=== PATIENT | male | born 1955 | race African-American/Black ===

== ENCOUNTER → 2016-12-08 | Outpatient (CLI) | payer OTHER ==
--- NOTE | 2016-12-08 15:16 | RADIOLOGY REPORT (SQ) ---
EXAM DESCRIPTION: HIP LEFT AP/LATERAL COMPLETED DATE/TIME: 12/08/2016 2:44 pm REASON FOR STUDY: PAIN IN LEFT HIP M46.1 SACROILIITIS, NOT ELSEWHERE CLASSIFIED M25.552 PAIN IN LE FT HIP COMPARISON: SI joint films same date CT abdomen pelvis 06/25/2012 NUMBER OF VIEWS: Two views. TECHNIQUE: AP pelvis and additional frog-leg view of the left hip. LIMITATIONS: None. FINDINGS: MINERALIZATION: Normal. LEFT HIP: No fracture or dislocation. No significant left hip joint space narrowing. Mild acetabula r rim bony spurring. No worrisome bone lesions. RIGHT HIP: No fracture or dislocation. No significant left hip joint space narrowing. Mild acetabul ar rim bony spurring. No worrisome bone lesions. PUBIS AND ISCHIUM: No fracture. PELVIS: No fracture. SACRUM: Right-sided SI joint sclerosis LOWER LUMBAR SPINE: No fracture or dislocation. No worrisome bone lesions. No significant disc disea se. SOFT TISSUES: No findings. OTHER: No other significant finding. IMPRESSION: No plain film findings to explain history of left hip pain. Right-sided SI joint bony s clerosis TECHNICAL DOCUMENTATION: JOB ID: [id number] [employer]- All Rights Reserved
--- NOTE | 2016-12-08 15:17 | RADIOLOGY REPORT (SQ) ---
EXAM DESCRIPTION: SACROILIAC JOINTS COMPLETED DATE/TIME: 12/08/2016 2:44 pm REASON FOR STUDY: SACROILIITIS, NOT ELSEWHERE CLASSIFIED M46.1 SACROILIITIS, NOT ELSEWHERE CLASSIFI ED M25.552 PAIN IN LEFT HIP COMPARISON: Left hip plain films same date CT abdomen pelvis 06/25/2012 NUMBER OF VIEWS: Three views. TECHNIQUE: AP and oblique views of the sacroiliac joints. LIMITATIONS: None. FINDINGS: MINERALIZATION: Normal. BONES: No acute fracture or dislocation. No worrisome bone lesions. No significant osteophytes. JOINTS: Sclerosis right SI joint. Left SI joint unremarkable. SOFT TISSUES: No soft tissue swelling. No radio-opaque foreign body. OTHER: No other significant finding. IMPRESSION: Sclerosis right SI joint. Left SI joint unremarkable. TECHNICAL DOCUMENTATION: JOB ID: [id number] [employer]- All Rights Reserved
== END ==
LOC: OD 14:15
PROVIDERS: ATTEND Internal Medicine
DX: M46.1 Sacroiliitis, not elsewhere classified (principal); M25.552 Pain in left hip; I10 Essential (primary) hypertension
CPT/HCPCS: 72200

== ENCOUNTER 2017-08-23 10:46 | Emergency (ER) | payer OTHER ==
[2017-08-23] MEDS ORDERED: NAPROXEN 250 MG TABLET PO ONE (10:59)
[2017-08-23] MEDS ORDERED: HYDROCODONE/ACETAMINOPHEN 5-325 MG TABLET PO ONE (10:59)
--- NOTE | 2017-08-23 10:59 | ER Document Report ---
ED Medical Screen (RME) - General Chief Complaint: Abdominal Pain Stated Complaint: LEFT ABDOMINAL PAIN Notes: The patient is a 62-year-old male who presents with 4 days of intermittent left lower quadrant and left inguinal abdominal pain. He was sent from the [place] [facility] for further evaluation and treatment. He is also having tea-colored urine. Denies nausea, vomiting, fevers, dysuria, diarrhea or constipation. PE: Tenderness over LLQ. Normal bowel sounds. I have greeted and performed a rapid initial assessment of this patient. A comprehensive ED assessment and evaluation of the patient, analysis of test results and completion of the medical decision making process will be conducted by additional ED providers. TRAVEL OUTSIDE OF THE [place] IN LAST 30 DAYS: No - Related Data Allergies/Adverse Reactions: latex [Latex] Allergy (Verified 12/20/12 11:33) rash Past Medical History - Past Medical History Cardiac Medical History: Reports: Hx Hypertension - MEDICATED Denies: Hx Heart Attack Pulmonary Medical History: Denies: Hx Asthma Neurological Medical History: Denies: Hx Cerebrovascular Accident, Hx Seizures GI Medical History: Denies: Hx Hepatitis, Hx Hiatal Hernia, Hx Ulcer Infectious Medical History: Denies: Hx Hepatitis Past Surgical History: Denies: Hx Open Heart Surgery, Hx Pacemaker Physical Exam - Vital signs Vitals: Temp Pulse Resp BP Pulse Ox 98.5 F 77 16 149/87 H 96 08/23/17 10:50 08/23/17 10:50 08/23/17 10:50 08/23/17 10:50 08/23/17 10:50 Course - Vital Signs Vital signs: Temp Pulse Resp BP Pulse Ox 98.5 F 77 16 149/87 H 96 08/23/17 10:50 08/23/17 10:50 08/23/17 10:50 08/23/17 10:50 08/23/17 10:50 Doctor's Discharge - Discharge Referrals: CHASITY DAVIS MD [Primary Care Provider] - Follow up as needed
[2017-08-23 11:43] LABS: APPEARANCE,URINE CLEAR; BILIRUBIN,URINE NEGATIVE (NEGATIVE); COLOR,URINE YELLOW; GLUCOSE, URINE NEGATIVE (NEGATIVE); KETONES,URINE NEGATIVE (NEGATIVE); LEUKOCYTE ESTERASE,URINE NEGATIVE (NEGATIVE); NITRITE,URINE NEGATIVE (NEGATIVE); PROTEIN,URINE NEGATIVE (NEGATIVE); URINE SPECIFIC GRAVITY 1.023; UROBILINOGEN,URINE NEGATIVE mg/dL (<2.0)
[2017-08-23 11:47] LABS: ABSOLUTE EOSINOPHILS # (AUTO) 0.1 10^3/uL (0.0-0.6); ABSOLUTE LYMPHOCYTES (AUTO) 1.5 10^3/uL (0.5-4.7); ABSOLUTE MONOCYTES (AUTO) 0.3 10^3/uL (0.1-1.4); ABSOLUTE NEUT (AUTO) 2.4 10^3/uL (1.7-8.2); BASOPHILS % (AUTO) 0.4 % (0-2); EOSINOPHILS % (AUTO) 1.9 % (0-6); HEMATOCRIT 45.3 % (37.9-51.0); HEMOGLOBIN 14.7 g/dL (13.5-17.0); LYMPHOCYTES % (AUTO) 34.2 % (13-45); MEAN CORPUSCULAR HEMOGLOBIN 22.9 pg (27.0-33.4); MEAN CORPUSCULAR HGB CONC 32.3 g/dL (32.0-36.0); MEAN CORPUSCULAR VOLUME 71 fl (80-97); MONOCYTES % (AUTO) 7.3 % (3-13); PLATELET COUNT 182 10^3/uL (150-450); RED BLOOD COUNT 6.41 10^6/uL (4.35-5.55); RED CELL DISTRIBUTION WIDTH 16.2 % (11.5-14.0); SEGMENTED NEUTROPHILS % (AUTO) 56.2 % (42-78); TOTAL CELLS COUNTED % (AUTO) 100 %; WHITE BLOOD COUNT 4.3 10^3/uL (4.0-10.5)
--- NOTE | 2017-08-23 11:54 | ER Document Report ---
ED General - General Chief Complaint: Abdominal Pain Stated Complaint: LEFT ABDOMINAL PAIN Time Seen by Provider: 08/23/17 10:59 Mode of Arrival: Ambulatory Information source: Patient Notes: This is a 62-year-old man with a history of hypertension, dyslipidemia, obstructive sleep apnea who presents to the emergency room with back pain radiating to the left flank for the past week. He did state that he had some tea colored urine a week ago but is urine has been clear since. He denies any history of kidney stones. He denies any nausea vomiting. He states he was evaluated at the [facility] and was treated with a Toradol shot which improved the pain. TRAVEL OUTSIDE OF THE [place] IN LAST 30 DAYS: No - HPI Onset: Other - Past 2 weeks Onset/Duration: Gradual Quality of pain: Dull Severity: Moderate Pain Level: 3 Associated symptoms: denies: Chills, Fever, Shortness of breath Exacerbated by: Movement, Other - During forward Relieved by: Remaining still Similar symptoms previously: Yes Recently seen / treated by doctor: Yes - Related Data Allergies/Adverse Reactions: latex [Latex] Allergy (Verified 08/23/17 11:00) rash Past Medical History - General Information source: Patient - Social History Smoking Status: Never Smoker Cigarette use (# per day): No Chew tobacco use (# tins/day): No Frequency of alcohol use: Rare Drug Abuse: None Lives with: Family Family History: None Patient has suicidal ideation: No Patient has homicidal ideation: No - Past Medical History Cardiac Medical History: Reports: Hx Hypercholesterolemia, Hx Hypertension - MEDICATED Denies: Hx Heart Attack Pulmonary Medical History: Denies: Hx Asthma Neurological Medical History: Denies: Hx Cerebrovascular Accident, Hx Seizures Renal/ Medical History: Denies: Hx Peritoneal Dialysis GI Medical History: Denies: Hx Hepatitis, Hx Hiatal Hernia, Hx Ulcer Infectious Medical History: Denies: Hx Hepatitis Past Surgical History: Reports: Hx Orthopedic Surgery - left knee. Denies: Hx Open Heart Surgery, Hx Pacemaker Review of Systems - Review of Systems Constitutional: denies: Chills, Fever EENT: No symptoms reported Cardiovascular: No symptoms reported Respiratory: No symptoms reported Gastrointestinal: See HPI Genitourinary: No symptoms reported Male Genitourinary: No symptoms reported Musculoskeletal: See HPI Skin: No symptoms reported Hematologic/Lymphatic: No symptoms reported Neurological/Psychological: No symptoms reported Physical Exam - Vital signs Vitals: Temp Pulse Resp BP Pulse Ox 98.5 F 77 16 149/87 H 96 08/23/17 10:50 08/23/17 10:50 08/23/17 10:50 08/23/17 10:50 08/23/17 10:50 Notes: Physical exam: GENERAL: 62-year-old man, alert and oriented 3, no acute distress HEAD: Atraumatic, normocephalic. EYES: Pupils equal round and reactive to light, extraocular movements intact, sclera anicteric, conjunctiva are normal. ENT: TMs normal, nares patent, oropharynx clear without exudates. Moist mucous membranes. NECK: Normal range of motion, supple without obvious mass or JVD. LUNGS: Breath sounds clear to auscultation bilaterally and equal. No wheezes rales or rhonchi. HEART: Regular rate and rhythm without murmurs, rubs or gallops. ABDOMEN: Soft, normoactive bowel sounds. No tenderness to palpation. No guarding, no rebound. No masses pulsatile or otherwise. EXTREMITIES: Normal range of motion, no pitting or edema. No clubbing or cyanosis. NEUROLOGICAL: Cranial nerves II through XII grossly intact. Normal speech, moving all extremities. PSYCH: Normal mood, normal affect. SKIN: Warm, Dry, normal turgor, no rashes or lesions noted. Course - Vital Signs Vital signs: Temp Pulse Resp BP Pulse Ox 97.4 F 69 16 121/87 H 97 08/23/17 13:53 08/23/17 13:53 08/23/17 13:53 08/23/17 13:53 08/23/17 13:53 - Laboratory Result Diagrams: 08/23/17 11:20 08/23/17 11:20 Laboratory results interpreted by me: 08/23/17 11:20 RBC 6.41 H MCV 71 L MCH 22.9 L RDW 16.2 H - Diagnostic Test Radiology reviewed: Image reviewed, Reports reviewed - CT of the abdomen shows a small left inguinal hernia without bowel compromise Discharge - Discharge Clinical Impression: Back pain Condition: Stable Disposition: HOME, SELF-CARE Additional Instructions: Your labs look good today. The urine analysis was normal. The CAT scan was relatively good. All your organs look good. There was an incidental finding and you have a small hernia in your groin on the left side. Hernias usually get worse with coughing, straining, heavy lifting. Your pain seems more positional which tends to be more of a back issue. I would like you to follow-up with your primary care doctor at the [facility]. I think you could probably benefit from a referral for physical therapy for your back and if the pain persist you might need an outpatient MRI. As far as the inguinal hernia, if you start getting pain with coughing, bowel movements, straining: I recommend following up with a surgeon as an outpatient. I will give you the number of Dr. Fournier who is 1 of the surgeons affiliated with the hospital. Otherwise continue current medicines and return to the emergency room for any concerns that she getting worse. Referrals: CHASITY DAVIS MD [Primary Care Provider] - Follow up as needed MONCHO NASH MD [ACTIVE STAFF] - Follow up as needed (This is the number of the general surgeon affiliated with the [facility])
[2017-08-23 12:02] LABS: ALANINE AMINOTRANSFERASE 41 U/L (21-72); ALBUMIN 4.4 g/dL (3.5-5.0); ALKALINE PHOSPHATASE 55 U/L (38-126); ANION GAP 11 (5-19); ASPARTATE AMINO TRANSFERASE 39 U/L (17-59); BILIRUBIN,DIRECT 0.3 mg/dL (0.0-0.4); BILIRUBIN,TOTAL 0.8 mg/dL (0.2-1.3); BLOOD UREA NITROGEN 18 mg/dL (7-20); CALCIUM 9.6 mg/dL (8.4-10.2); CARBON DIOXIDE 26 mmol/L (22-30); CHLORIDE 107 mmol/L (98-107); GLUCOSE 89 mg/dL (75-110); LIPASE 101.6 U/L (23-300); POTASSIUM 4.1 mmol/L (3.6-5.0); SODIUM 143.9 mmol/L (137-145)
--- NOTE | 2017-08-23 12:54 | RADIOLOGY REPORT (SQ) ---
EXAM DESCRIPTION: CT ABD/PELVIS WITH IV ONLY COMPLETED DATE/TIME: 08/23/2017 12:28 pm REASON FOR STUDY: LLQ abdominal pain COMPARISON: Renal stones CT abdomen and pelvis 06/25/2012 TECHNIQUE: CT scan of the abdomen and pelvis performed using helical scanning technique with dynamic intravenous contrast injection. No oral contrast. Images reviewed with lung, soft tissue, and bone windows. Reconstructed coronal and sagittal MPR images reviewed. Delayed images for evaluation of the urinary system also acquired. All images stored on PACS. All CT scanners at this facility use dose modulation, iterative reconstruction, and/or weight based d osing when appropriate to reduce radiation dose to as low as reasonably achievable (ALARA). [facility]: Dose Right [facility]: CareDose [facility]: Dose Right [facility]: Teradose 4D [facility]: [employer] CONTRAST TYPE AND DOSE: contrast/concentration: Isovue 370.00 mg/ml; Total Contrast Delivered: 100.0 ml; Total Saline Delivered: 72.0 ml 100 mL Isovue 370 intravenously RENAL FUNCTION: Creatinine 0.85. RADIATION DOSE: CT Rad equipment meets quality standard of care and radiation dose reduction techniq ues were employed. CTDIvol: 20.9 - 21.1 mGy. DLP: 2542 mGy-cm.. LIMITATIONS: None. FINDINGS: LOWER CHEST: No significant findings. No nodules or infiltrates. LIVER: Multiple cysts are again seen of the liver, the largest 4.1 cm. SPLEEN: Normal size. No focal lesions. PANCREAS: No masses. No significant calcifications. No adjacent inflammation or peripancreatic fluid collections. Pancreatic duct not dilated. GALLBLADDER: No identified stones by CT criteria. No inflammatory changes to suggest cholecystitis. ADRENAL GLANDS: No significant masses or asymmetry. RIGHT KIDNEY AND URETER: No solid masses. No significant calcifications. No hydronephrosis or hyd roureter. LEFT KIDNEY AND URETER: No solid masses. No significant calcifications. No hydronephrosis or hydr oureter. AORTA AND VESSELS: No AAA. RETROPERITONEUM: No retroperitoneal adenopathy, hemorrhage or masses. BOWEL AND PERITONEAL CAVITY: No masses or inflammatory changes. No free fluid or peritoneal masses. APPENDIX: Normal. PELVIS: No mass. No free fluid. Normal bladder. ABDOMINAL WALL: Left inguinal hernia contains peritoneal fat. BONES: No significant or acute findings. OTHER: No other significant finding. IMPRESSION: Nothing acute. Small left inguinal hernia contains peritoneal fat. TECHNICAL DOCUMENTATION: JOB ID: [id number] Quality ID # [id number]: Final reports with documentation of one or more dose reduction techniques (e.g., Au tomated exposure control, adjustment of the mA and/or kV according to patient size, use of iterative reconstruction technique) 2010 [employer]- All Rights Reserved Reading location - IP/workstation name: [email or web address]
[2017-08-23 13:54] VITALS: BP 121/87
== END 2017-08-23 13:53 | disposition home or self-care (01) ==
LOC: ER 10:46
DX: M54.9 Dorsalgia, unspecified (principal); K40.90 Unilateral inguinal hernia, without obstruction or gangrene, not specified as recurrent; R10.9 Unspecified abdominal pain; I10 Essential (primary) hypertension; Z91.040 Latex allergy status
CPT/HCPCS: 36415; 74177; 80053; 81001; 83690; 85025; 99284

== ENCOUNTER → 2018-09-04 | Outpatient (CLI) | payer OTHER ==
--- NOTE | 2018-09-04 11:01 | RADIOLOGY REPORT (SQ) ---
EXAM DESCRIPTION: U/S ABDOMEN LIMITED W/O DOP COMPLETED DATE/TIME: 09/04/2018 10:11 am REASON FOR STUDY: (R10.9)UNSPECIFIED ABDOMINAL PAIN R10.9 UNSPECIFIED ABDOMINAL PAIN R11.0 NAUSEA COMPARISON: CT abdomen pelvis 08/23/2017, 06/25/2012 Abdominal ultrasound 10/20/2015 TECHNIQUE: Dynamic and static grayscale images acquired of the abdomen and recorded on PACS. Additio nal selected color Doppler and spectral images recorded. LIMITATIONS: None. FINDINGS: PANCREAS: Midline pancreas unremarkable LIVER: There are multiple benign cysts scattered throughout the liver, correlating with the CT exam f rom 08/23/2017. The largest of these is about 4 cm in diameter in the left lobe liver. LIVER VASCULATURE: Normal directional flow of the main portal vein and hepatic veins. GALLBLADDER: No stones. Normal wall thickness. No pericholecystic fluid. ULTRASOUND-DETECTED MONROE'S SIGN: Negative. INTRAHEPATIC DUCTS AND COMMON DUCT: CBD and intrahepatic ducts normal caliber. No filling defects. D istal most common duct not well seen due to duodenum gas INFERIOR VENA CAVA: Normal flow. AORTA: No aneurysm. RIGHT KIDNEY: Normal size. Normal echogenicity. No solid or suspicious masses. No hydronephrosis. No calcifications. PERITONEAL AND RIGHT PLEURAL SPACE: No ascites or effusions. OTHER: No other significant findings. IMPRESSION: NORMAL RIGHT UPPER QUADRANT ULTRASOUND. Multiple benign hepatic cysts are present. TECHNICAL DOCUMENTATION: JOB ID: [id number] [employer]- All Rights Reserved Reading location - IP/workstation name: [email or web address]
== END ==
LOC: RAD 09:06
PROVIDERS: ATTEND Internal Medicine Gastroenterology
DX: K76.89 Other specified diseases of liver (principal); R10.9 Unspecified abdominal pain; R11.0 Nausea
CPT/HCPCS: 76705

== ENCOUNTER 2019-03-18 18:20 | Inpatient (IN) | payer OTHER ==
--- NOTE | 2019-03-18 20:01 | ER Document Report ---
ED Medical Screen (RME) - General Chief Complaint: Leg Pain Stated Complaint: POSSIBLE BLOOD CLOT Time Seen by Provider: 03/18/19 19:54 Primary Care Provider: CHASITY DAVIS MD [Primary Care Provider] - Follow up as needed TRAVEL OUTSIDE OF THE [place] IN LAST 30 DAYS: No - HPI Notes: 03/18/19 20:00 Patient is a 63-year-old male who presents from outpatient Doppler ultrasound for a blood clot to the posterior tibial veins from the knee down of his right leg. He is not having any chest pain or shortness of breath. Denies any prolonged immobilization, distance travel, recent surgery/trauma, personal cancer history, hormone use, or previous DVT/PE. Reviewed with Dr. Bray- we will check labs prior to starting anticoagulants I have treated and performed a rapid initial assessment of this patient. A comprehensive ED assessment and evaluation of the patient, analysis of test results and completion of medical decision making process will be conducted by additional ED providers. PHYSICAL EXAMINATION: GENERAL: Well-appearing, well-nourished and in no acute distress. A&Ox4. Answers questions appropriately. Heart: RRR Lungs: CTAB Extremities: Right leg is larger than left leg with 1+ pitting edema to the right and trace to the left. - Related Data Allergies/Adverse Reactions: latex [Latex] Allergy (Verified 03/18/19 19:46) rash Past Medical History - Past Medical History Cardiac Medical History: Reports: Hx Hypercholesterolemia, Hx Hypertension - MEDICATED Denies: Hx Heart Attack Pulmonary Medical History: Denies: Hx Asthma Neurological Medical History: Denies: Hx Cerebrovascular Accident, Hx Seizures Renal/ Medical History: Denies: Hx Peritoneal Dialysis GI Medical History: Denies: Hx Hepatitis, Hx Hiatal Hernia, Hx Ulcer Infectious Medical History: Denies: Hx Hepatitis Past Surgical History: Reports: Hx Orthopedic Surgery - left knee. Denies: Hx Open Heart Surgery, Hx Pacemaker Physical Exam - Vital signs Vitals: Temp Pulse Resp BP Pulse Ox 98.4 F 71 20 148/87 H 98 03/18/19 19:37 03/18/19 19:37 03/18/19 19:37 03/18/19 19:37 03/18/19 19:37 Course - Vital Signs Vital signs: Temp Pulse Resp BP Pulse Ox 98.4 F 71 20 148/87 H 98 03/18/19 19:37 03/18/19 19:37 03/18/19 19:37 03/18/19 19:37 03/18/19 19:37 Doctor's Discharge - Discharge Referrals: CHASITY DAVIS MD [Primary Care Provider] - Follow up as needed
[2019-03-18 20:26] LABS: ABSOLUTE EOSINOPHILS # (AUTO) 0.2 10^3/uL (0.0-0.6); ABSOLUTE LYMPHOCYTES (AUTO) 2.2 10^3/uL (0.5-4.7); ABSOLUTE MONOCYTES (AUTO) 0.5 10^3/uL (0.1-1.4); ABSOLUTE NEUT (AUTO) 3.8 10^3/uL (1.7-8.2); BASOPHILS % (AUTO) 0.4 % (0-2); EOSINOPHILS % (AUTO) 3.1 % (0-6); HEMOGLOBIN 14.2 g/dL (13.5-17.0); LYMPHOCYTES % (AUTO) 32.2 % (13-45); MEAN CORPUSCULAR HEMOGLOBIN 22.5 pg (27.0-33.4); MEAN CORPUSCULAR HGB CONC 31.7 g/dL (32.0-36.0); MEAN CORPUSCULAR VOLUME 71 fl (80-97); MONOCYTES % (AUTO) 7.9 % (3-13); PLATELET COUNT 175 10^3/uL (150-450); RED BLOOD COUNT 6.33 10^6/uL (4.35-5.55); RED CELL DISTRIBUTION WIDTH 15.9 % (11.5-14.0); SEGMENTED NEUTROPHILS % (AUTO) 56.4 % (42-78); TOTAL CELLS COUNTED % (AUTO) 100 %; WHITE BLOOD COUNT 6.7 10^3/uL (4.0-10.5)
[2019-03-18 20:33] LABS: INTERNATIONAL RATION (INR) 0.97; PROTHROMBIN TIME 12.9 SEC (11.4-15.4)
[2019-03-18 20:34] LABS: PARTIAL THROMBOPLASTIN TIME 30.9 SEC (23.5-35.8)
[2019-03-18 20:52] LABS: ALBUMIN 4.3 g/dL (3.5-5.0); ALKALINE PHOSPHATASE 66 U/L (38-126); ANION GAP 9 (5-19); ASPARTATE AMINO TRANSFERASE 48 U/L (17-59); BILIRUBIN,DIRECT 0.2 mg/dL (0.0-0.4); BILIRUBIN,TOTAL 0.6 mg/dL (0.2-1.3); BLOOD UREA NITROGEN 17 mg/dL (7-20); CALCIUM 10.2 mg/dL (8.4-10.2); CARBON DIOXIDE 29 mmol/L (22-30); CHLORIDE 102 mmol/L (98-107); GLUCOSE 88 mg/dL (75-110); TOTAL PROTEIN 7.4 g/dL (6.3-8.2)
--- NOTE | 2019-03-18 21:54 | ER Document Report ---
ED Extremity Problem, Lower - General Chief Complaint: Leg Pain Stated Complaint: POSSIBLE BLOOD CLOT Time Seen by Provider: 03/18/19 19:54 Mode of Arrival: Ambulatory Information source: Patient Notes: 63-year-old male presented to ED for complaint of a deep vein thrombosis from the posterior tibial to the mid calf area. He was sent for the venous Doppler by Dr. Paula after the Doppler came back positive they sent him to the emergency room. He was seen in pit where labs were drawn. He was sent back to a room. I have spoken with Dr. Paula concerning the results of the venous Doppler and he stated he would like the patient admitted and started on a heparin drip. He states he would like him admitted to telemetry. Admission has been started. Heparin drip has been started per protocol. Patient has been ordered a diet for tonight. Patient is alert oriented respirations regular nonlabored speaking in full sentences he states that he does have pain to the back of the left leg. TRAVEL OUTSIDE OF THE [place] IN LAST 30 DAYS: No - HPI Patient complains to provider of: Pain, Swelling Location: Leg - Right Occurred: Other - Several days Where: Home Onset/Duration: Gradual Quality of pain: Burning Severity: Severe Recent injury: No Associated symptoms: Painful ambulation Exacerbated by: Nothing Relieved by: Nothing - Related Data Allergies/Adverse Reactions: latex [Latex] Allergy (Verified 03/18/19 19:46) rash Past Medical History - General Information source: Patient - Social History Smoking Status: Former Smoker Frequency of alcohol use: Rare Drug Abuse: None Occupation: Retired Lives with: Family Family History: None Patient has suicidal ideation: No Patient has homicidal ideation: No - Past Medical History Cardiac Medical History: Reports: Hx Hypercholesterolemia, Hx Hypertension - MEDICATED, Hx Peripheral Vascular Disease Pulmonary Medical History: Reports: Hx Sleep Apnea EENT Medical History: Reports: None Neurological Medical History: Reports: None Endocrine Medical History: Reports: None Renal/ Medical History: Reports: None Malignancy Medical History: Reports None GI Medical History: Reports: None Musculoskeletal Medical History: Reports Hx Arthritis, 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, Reports Hx Musculoskeletal Trauma Skin Medical History: Reports None Psychiatric Medical History: Reports: None Traumatic Medical History: Reports: None Infectious Medical History: Reports: None Past Surgical History: Reports: Hx Orthopedic Surgery - left knee partial knee replacement 2014 - Immunizations Immunizations up to date: Yes Review of Systems - Review of Systems Constitutional: No symptoms reported EENT: No symptoms reported Cardiovascular: No symptoms reported Respiratory: No symptoms reported Gastrointestinal: No symptoms reported Genitourinary: No symptoms reported Male Genitourinary: No symptoms reported Musculoskeletal: Other - Pain swelling to right knee to ankle. Positive venous Doppler for DVT Hematologic/Lymphatic: Blood clots - Left posterior tibial Neurological/Psychological: No symptoms reported -: Yes All other systems reviewed and negative Physical Exam - Vital signs Vitals: Temp Pulse Resp BP Pulse Ox 98.4 F 71 20 148/87 H 98 03/18/19 19:37 03/18/19 19:37 03/18/19 19:37 03/18/19 19:37 03/18/19 19:37 Interpretation: Normal - General General appearance: Appears well, Alert - HEENT Head: Normocephalic, Atraumatic Eyes: Normal Pupils: PERRL - Respiratory Respiratory status: No respiratory distress Chest status: Nontender Breath sounds: Normal Chest palpation: Normal - Cardiovascular Rhythm: Regular Heart sounds: Normal auscultation Murmur: No - Abdominal Inspection: Normal Distension: No distension Bowel sounds: Normal Tenderness: Nontender Organomegaly: No organomegaly - Back Back: Normal, Nontender - Extremities General upper extremity: Normal inspection, Nontender, Normal color, Normal ROM, Normal temperature General lower extremity: Normal color, Normal ROM, Normal temperature, Normal weight bearing. No: Dick's sign Knee: Tender, Pain with ROM, Patellar tendon intact, Popliteal fossa tender Calf: Tender Ankle: Tender - Neurological Neuro grossly intact: Yes Cognition: Normal Orientation: AAOx4 Notus Coma Scale Eye Opening: Spontaneous Domi Coma Scale Verbal: Oriented Notus Coma Scale Motor: Obeys Commands Domi Coma Scale Total: 15 Speech: Normal Motor strength normal: LUE, RUE, LLE, RLE Sensory: Normal - Psychological Associated symptoms: Normal affect, Normal mood - Skin Skin Temperature: Warm Skin Moisture: Dry Skin Color: Normal Course - Re-evaluation Re-evalutation: 03/18/19 22:[address] Paula concerning the posterior tibial to mid calf DVT. He states he would like the patient admitted to telemetry for DVT. He states he would like an upper heparin drip started. Orders were placed. Patient was given food for supper and he will be admitted to telemetry per Dr. Paula's request. - Vital Signs Vital signs: Temp Pulse Resp BP Pulse Ox 98.3 F 68 16 122/75 98 03/19/19 03:55 03/19/19 07:00 03/19/19 03:55 03/19/19 03:55 03/19/19 03:55 - Laboratory Result Diagrams: 03/19/19 05:25 03/19/19 05:25 Laboratory results interpreted by me: 03/18/19 03/18/19 03/18/19 20:09 20:09 20:09 RBC 6.33 H MCV 71 L MCH 22.5 L MCHC 31.7 L RDW 15.9 H Magnesium 2.6 H Creatine Kinase 552 H - Diagnostic Test Radiology reviewed: Image reviewed, Reports reviewed - Consults Dr. Paula Time consulted: 22:00 Reason for consultation: 03/18/19 22:16 Vein thrombosis right knee to calf Consulted provider: will see as inpatient Discharge - Discharge Clinical Impression: Deep vein thrombophlebitis of right leg Disposition: ADMITTED INPATIENT Admitting Provider: Nisa Unit Admitted: Telemetry
[2019-03-18] MEDS ORDERED: HEPARIN SODIUM,PORCINE/D5W 25,000 UNIT/250 ML RTUINJ IV PRN (22:07)
[2019-03-18] MEDS ORDERED: HEPARIN SOD (PORCINE) 1,000 UNIT/ML 10 ML VIAL IV ONE (22:07)
[2019-03-18 23:26] LABS: PHOSPHORUS 4.1 mg/dL (2.5-4.5)
[2019-03-18 23:26] LABS: ABSOLUTE EOSINOPHILS # (AUTO) 0.2 10^3/uL (0.0-0.6); ABSOLUTE MONOCYTES (AUTO) 0.5 10^3/uL (0.1-1.4); ABSOLUTE NEUT (AUTO) 3.9 10^3/uL (1.7-8.2); BASOPHILS % (AUTO) 0.3 % (0-2); EOSINOPHILS % (AUTO) 3.1 % (0-6); HEMATOCRIT 44.8 % (37.9-51.0); LYMPHOCYTES % (AUTO) 30.7 % (13-45); MEAN CORPUSCULAR HEMOGLOBIN 22.4 pg (27.0-33.4); MEAN CORPUSCULAR HGB CONC 31.3 g/dL (32.0-36.0); MEAN CORPUSCULAR VOLUME 72 fl (80-97); PLATELET COUNT 163 10^3/uL (150-450); RED BLOOD COUNT 6.26 10^6/uL (4.35-5.55); RED CELL DISTRIBUTION WIDTH 15.8 % (11.5-14.0); SEGMENTED NEUTROPHILS % (AUTO) 58.9 % (42-78); TOTAL CELLS COUNTED % (AUTO) 100 %; WHITE BLOOD COUNT 6.6 10^3/uL (4.0-10.5)
[2019-03-18 23:34] LABS: INTERNATIONAL RATION (INR) 1.15; PROTHROMBIN TIME 14.8 SEC (11.4-15.4)
[2019-03-18 23:49] LABS: CREATINE KINASE MB 3.81 ng/mL (<4.55)
[2019-03-19 00:01] LABS: TROPONIN I < 0.012 ng/mL
[2019-03-19 00:08] LABS: PARTIAL THROMBOPLASTIN TIME > 235.0 SEC (23.5-35.8)
[2019-03-19 00:11] LABS: FREE T4 (FREE THYROXINE) 0.84 ng/dL (0.78-2.19)
[2019-03-19 00:12] LABS: THYROID STIMULATING HORMONE 2.52 uIU/mL (0.47-4.68)
[2019-03-19 01:36] LABS: APPEARANCE,URINE SLIGHTLY-CLOUDY; BILIRUBIN,URINE NEGATIVE (NEGATIVE); COLOR,URINE YELLOW; GLUCOSE, URINE NEGATIVE (NEGATIVE); KETONES,URINE NEGATIVE (NEGATIVE); LEUKOCYTE ESTERASE,URINE NEGATIVE (NEGATIVE); NITRITE,URINE NEGATIVE (NEGATIVE); PROTEIN,URINE NEGATIVE (NEGATIVE); URINE SPECIFIC GRAVITY 1.024; UROBILINOGEN,URINE NEGATIVE mg/dL (<2.0)
[2019-03-19 01:56] LABS: URINE AMPHETAMINES SCREEN NEGATIVE; URINE BARBITURATES SCREEN NEGATIVE; URINE BENZODIAZEPINES SCREEN NEGATIVE; URINE COCAINE SCREEN NEGATIVE; URINE MARIJUANA (THC) SCREEN NEGATIVE; URINE METHADONE SCREEN NEGATIVE; URINE PHENCYCLIDINE SCREEN NEGATIVE
[2019-03-19 06:06] LABS: ABSOLUTE EOSINOPHILS # (AUTO) 0.2 10^3/uL (0.0-0.6); ABSOLUTE LYMPHOCYTES (AUTO) 1.8 10^3/uL (0.5-4.7); ABSOLUTE MONOCYTES (AUTO) 0.5 10^3/uL (0.1-1.4); ABSOLUTE NEUT (AUTO) 2.8 10^3/uL (1.7-8.2); BASOPHILS % (AUTO) 0.6 % (0-2); EOSINOPHILS % (AUTO) 4.3 % (0-6); HEMATOCRIT 40.1 % (37.9-51.0); LYMPHOCYTES % (AUTO) 33.7 % (13-45); MEAN CORPUSCULAR HEMOGLOBIN 22.8 pg (27.0-33.4); MEAN CORPUSCULAR HGB CONC 32.3 g/dL (32.0-36.0); MEAN CORPUSCULAR VOLUME 71 fl (80-97); MONOCYTES % (AUTO) 10.1 % (3-13); PLATELET COUNT 154 10^3/uL (150-450); RED BLOOD COUNT 5.69 10^6/uL (4.35-5.55); RED CELL DISTRIBUTION WIDTH 15.7 % (11.5-14.0); SEGMENTED NEUTROPHILS % (AUTO) 51.3 % (42-78); TOTAL CELLS COUNTED % (AUTO) 100 %; WHITE BLOOD COUNT 5.4 10^3/uL (4.0-10.5)
[2019-03-19 06:35] LABS: CREATINE KINASE MB 2.54 ng/mL (<4.55)
[2019-03-19 06:40] LABS: TROPONIN I < 0.012 ng/mL
[2019-03-19 06:48] LABS: ALBUMIN 3.5 g/dL (3.5-5.0); ALKALINE PHOSPHATASE 69 U/L (38-126); ANION GAP 9 (5-19); ASPARTATE AMINO TRANSFERASE 38 U/L (17-59); BILIRUBIN,DIRECT 0.3 mg/dL (0.0-0.4); BILIRUBIN,TOTAL 0.5 mg/dL (0.2-1.3); BLOOD UREA NITROGEN 16 mg/dL (7-20); CALCIUM 9.4 mg/dL (8.4-10.2); CARBON DIOXIDE 23 mmol/L (22-30); CHLORIDE 109 mmol/L (98-107); CHOLESTEROL 158.32 mg/dL (0-200); CREATINE KINASE 403 U/L (55-170); GLUCOSE 153 mg/dL (75-110); POTASSIUM 3.4 mmol/L (3.6-5.0); TOTAL PROTEIN 6.3 g/dL (6.3-8.2); TRIGLYCERIDES 159 mg/dL (<150)
[2019-03-19 06:59] LABS: DIRECT LDL 92 mg/dL (<100)
[2019-03-19 07:00] LABS: VLDL CHOLESTEROL 31.8 mg/dL (10-31)
[2019-03-19 12:07] LABS: TROPONIN I < 0.012 ng/mL
[2019-03-19] MEDS ORDERED: (PENDING PHARMACY ID) (Losartan/Hydrochlorothiazide [Losartan-Hctz 100-25 Mg Tab] 1 EACH) PO SCH (18:15)
[2019-03-19] MEDS ORDERED: FOLIC ACID PO SCH (18:15)
[2019-03-19] MEDS ORDERED: [UNRECOGNIZED DRUG - OTHER] PO SCH (18:15)
[2019-03-19] MEDS ORDERED: MV MN PO SCH (18:15)
[2019-03-19] MEDS ORDERED: LUTEIN PO SCH (18:15)
[2019-03-19 18:39] VITALS: BP 122/75
--- NOTE | 2019-03-19 20:10 | PDOC H&P ---
History of Present Illness Admission Date/PCP: 03/18/19 22:47 CHASITY DAVIS MD History of Present Illness: NICKI WHITNEY is a 63 year old male, He came to the office for evaluation of swelling of the right lower extremity, I suspected deep vein thrombosis, I requested for a venous ultrasound of the right lower extremities, the ultrasound demonstrated deep vein thrombosis affecting the posterior tibial vein from the knee to the mid calf. Patient was then subsequently referred from the ultrasound laboratory to the emergency room and subsequently he was admitted to the hospital. He has no chest pain ,he has no shortness of breath there is no known provocative factor That could be the etiology of the Deep vein thrombosis Past Medical History Cardiac Medical History: Reports: Hyperlipidema, Hypertension - MEDICATED, Peripheral Vascular Disease Pulmonary Medical History: Reports: Sleep Apnea EENT Medical History: Reports: None Neurological Medical History: Reports: None Endocrine Medical History: Reports: None Renal/ Medical History: Reports: None Malignancy Medical History: Reports: None GI Medical History: Reports: None Musculoskeltal Medical History: Reports: Arthritis Skin Medical History: Reports: None Psychiatric Medical History: Reports: None Traumatic Medical History: Reports: None Infectious Medical History: Reports: None Past Surgical History Past Surgical History: Reports: Orthopedic Surgery - left knee partial knee replacement 2014 Social History Lives with: Family Smoking Status: Former Smoker Electronic Cigarette use?: No Last Time Smoked: 1986 Frequency of Alcohol Use: Occasional Hx Recreational Drug Use: No Drugs: None Hx Prescription Drug Abuse: No Family History Family History: None Parental Family History Reviewed: Yes Children Family History Reviewed: Yes Sibling(s) Family History Reviewed.: Yes Medication/Allergy Home Medications: Apixaban [Eliquis 5 mg Tablet] 10 mg PO BID #14 tablet 03/19/19 Atorvastatin Calcium [Lipitor 20 mg Tablet] 20 mg PO QHS 03/19/19 Losartan/Hydrochlorothiazide [Losartan-Hctz 100-25 mg Tab] 1 each PO DAILY 03/19/19 Mv-Mn/Folic Acid/Lutein/Clb595 [Omid Multi For Men Tablet] 1 each PO DAILY 03/19/19 Allergies/Adverse Reactions: latex [Latex] Allergy (Verified 03/18/19 19:46) rash Review of Systems Constitutional: ABSENT: chills, fever(s), headache(s), weight gain, weight loss Eyes: ABSENT: visual disturbances Ears: ABSENT: hearing changes Cardiovascular: ABSENT: chest pain, dyspnea on exertion, edema, orthropnea, palpitations Respiratory: ABSENT: cough, hemoptysis Gastrointestinal: ABSENT: abdominal pain, constipation, diarrhea, hematemesis, hematochezia, nausea, vomiting Genitourinary: ABSENT: dysuria, hematuria Musculoskeletal: ABSENT: joint swelling Integumentary: ABSENT: rash, wounds Neurological: ABSENT: abnormal gait, abnormal speech, confusion, dizziness, focal weakness, syncope Psychiatric: ABSENT: anxiety, depression, homidical ideation, suicidal ideation Endocrine: ABSENT: cold intolerance, heat intolerance, menstrual abnormalities, polydipsia, polyuria Hematologic/Lymphatic: ABSENT: easy bleeding, easy bruising, lymphadenopathy Physical Exam Vital Signs: Temp Pulse Resp BP Pulse Ox 97.2 F 66 17 122/75 96 03/19/19 18:36 03/19/19 18:36 03/19/19 18:36 03/19/19 18:36 03/19/19 18:36 Intake & Output 03/18/19 03/19/19 03/20/19 06:59 06:59 06:59 Intake Total 112 1080 Output Total 400 Balance 112 680 Weight 140.6 kg General appearance: PRESENT: no acute distress, well-developed, well-nourished Head exam: PRESENT: atraumatic, normocephalic Eye exam: PRESENT: conjunctiva pink, EOMI, PERRLA Ear exam: PRESENT: normal external ear exam Mouth exam: PRESENT: moist, tongue midline Neck exam: PRESENT: full ROM Respiratory exam: PRESENT: clear to auscultation tiffany Cardiovascular exam: PRESENT: RRR, +S1, +S2 Pulses: PRESENT: normal dorsalis pedis pul, +2 pedal pulses bilateral Vascular exam: PRESENT: normal capillary refill GI/Abdominal exam: PRESENT: normal bowel sounds, soft Rectal exam: PRESENT: deferred Extremities exam: PRESENT: other - Right leg swelling Neurological exam: PRESENT: alert, awake, oriented to person, oriented to place, oriented to time, oriented to situation, CN II-XII grossly intact Psychiatric exam: PRESENT: appropriate affect, normal mood Skin exam: PRESENT: dry, intact, warm Results Laboratory Results: 03/19/19 05:25 03/19/19 05:25 01/13/20 01/13/20 01/13/20 20:09 20:09 20:09 WBC 6.7 RBC 6.33 H Hgb 14.2 Hct 45.0 MCV 71 L MCH 22.5 L MCHC 31.7 L RDW 15.9 H Plt Count 175 Seg Neutrophils % 56.4 Sodium 139.9 Potassium 4.0 Chloride 102 Carbon Dioxide 29 Anion Gap 9 BUN 17 Creatinine 0.92 Est GFR ( Amer) > 60 Glucose 88 Calcium 10.2 Phosphorus 4.1 Magnesium 2.6 H Total Bilirubin 0.6 AST 48 Alkaline Phosphatase 66 Ammonia Total Protein 7.4 Albumin 4.3 Triglycerides Cholesterol LDL Cholesterol Direct VLDL Cholesterol HDL Cholesterol Amylase 86 Lipase 79.0 TSH Free T4 Urine Color Urine Appearance Urine pH Ur Specific [place] Urine Protein Urine Glucose (UA) Urine Ketones Urine Blood Urine Nitrite Ur Leukocyte Esterase Urine WBC (Auto) Urine RBC (Auto) 03/18/19 03/18/19 03/18/19 20:09 23:15 23:15 WBC 6.6 RBC 6.26 H Hgb 14.0 Hct 44.8 MCV 72 L MCH 22.4 L MCHC 31.3 L RDW 15.8 H Plt Count 163 Seg Neutrophils % 58.9 Sodium Potassium Chloride Carbon Dioxide Anion Gap BUN Creatinine Est GFR ( Amer) Glucose Calcium Phosphorus Magnesium Total Bilirubin AST Alkaline Phosphatase Ammonia < 8.7 L Total Protein Albumin Triglycerides Cholesterol LDL Cholesterol Direct VLDL Cholesterol HDL Cholesterol Amylase Lipase TSH 2.52 Free T4 0.84 Urine Color Urine Appearance Urine pH Ur Specific [place] Urine Protein Urine Glucose (UA) Urine Ketones Urine Blood Urine Nitrite Ur Leukocyte Esterase Urine WBC (Auto) Urine RBC (Auto) 03/19/19 03/19/19 03/19/19 01:15 05:25 05:25 WBC 5.4 RBC 5.69 H Hgb 13.0 L Hct 40.1 MCV 71 L MCH 22.8 L MCHC 32.3 RDW 15.7 H Plt Count 154 Seg Neutrophils % 51.3 Sodium 140.6 Potassium 3.4 L Chloride 109 H Carbon Dioxide 23 Anion Gap 9 BUN 16 Creatinine 0.80 Est GFR ( Amer) > 60 Glucose 153 H Calcium 9.4 Phosphorus Magnesium Total Bilirubin 0.5 AST 38 Alkaline Phosphatase 69 Ammonia Total Protein 6.3 Albumin 3.5 Triglycerides 159 H Cholesterol 158.32 LDL Cholesterol Direct 92 VLDL Cholesterol 31.8 H HDL Cholesterol 47 Amylase Lipase TSH Free T4 Urine Color YELLOW Urine Appearance SLIGHTLY-CLOUDY Urine pH 5.0 Ur Specific [place] 1.024 Urine Protein NEGATIVE Urine Glucose (UA) NEGATIVE Urine Ketones NEGATIVE Urine Blood NEGATIVE Urine Nitrite NEGATIVE Ur Leukocyte Esterase NEGATIVE Urine WBC (Auto) 0 Urine RBC (Auto) 0 03/18/19 03/18/19 03/18/19 20:09 20:09 20:09 Creatine Kinase 552 H CK-MB (CK-2) 3.81 Troponin I < 0.012 NT-Pro-B Natriuret Pep 03/19/19 03/19/19 03/19/19 05:25 05:25 10:49 Creatine Kinase 403 H 359 H CK-MB (CK-2) 2.54 Troponin I < 0.012 NT-Pro-B Natriuret Pep 03/19/19 10:49 Creatine Kinase CK-MB (CK-2) 2.30 Troponin I < 0.012 NT-Pro-B Natriuret Pep Assessment & Plan - Diagnosis (1) Acute embolism and thrombosis of deep vein of right lower extremity Is this a current diagnosis for this admission?: Yes Plan: He has unprovoked deep vein thrombosis of the right leg, patient is admitted into the hospital for management
--- NOTE | 2019-03-19 20:17 | PDOC DISCHARGE SUMMARY ---
Impression - Admit/DC Date/PCP Admission Date/Primary Care Provider: 03/18/19 22:47 CHASITY DAVIS MD Discharge Date: 03/19/19 - Discharge Diagnosis (1) Acute embolism and thrombosis of deep vein of right lower extremity Is this a current diagnosis for this admission?: Yes - Additional Information Discharge Diet: As Tolerated Referrals: CHASITY DAVIS MD [Primary Care Provider] - Follow up as needed Prescriptions: Apixaban [Eliquis 5 mg Tablet] 10 mg PO BID #14 tablet Home Medications: Apixaban [Eliquis 5 mg Tablet] 10 mg PO BID #14 tablet 03/19/19 Atorvastatin Calcium [Lipitor 20 mg Tablet] 20 mg PO QHS 03/19/19 Losartan/Hydrochlorothiazide [Losartan-Hctz 100-25 mg Tab] 1 each PO DAILY 03/19/19 Mv-Mn/Folic Acid/Lutein/Sgs246 [Omid Multi For Men Tablet] 1 each PO DAILY 03/19/19 History of Present Illiness History of Present Illness: NICKI WHITNEY is a 63 year old male, He came to the office for evaluation of swelling of the right lower extremity, I suspected deep vein thrombosis, I requested for a venous ultrasound of the right lower extremities, the ultrasound demonstrated deep vein thrombosis affecting the posterior tibial vein from the knee to the mid calf. Patient was then subsequently referred from the ultra sound laboratory to the emergency room and subsequently he was admitted to the hospital. He has no chest pain ,he has no shortness of breath there is no known provocative factor That could be the etiology of the Deep vein thrombosis Hospital Course Hospital Course: Patient was admitted for the management of unprovoked deep vein thrombosis of the right lower extremities, it is a distal thrombosis, it extends from the knee to the mid calf. Typically the duration of treatment for unprovoked deep vein thrombosis/pulmonary embolism is lifelong. Patient is a retired civil servant ,he stated that since long term he has not been very active ,he has a sedentary lifestyle he thought that could be a contributing factor to his thrombosis. I do not see an indication for patient to be admitted to the hospital for the management of this distal thrombosis, he was brought in last night admitted for observation he was treated with intravenous heparin according to the high-dose protocol but patient could be safely discharged home on the new anticoagulant he will be transitioned to p.o. Eliquis to 10 p.o. daily twice daily for 7 days which is the loading dose then 50 p.o. twice daily . Physical Exam Vital Signs: Temp Pulse Resp BP Pulse Ox 97.2 F 66 17 122/75 96 03/19/19 18:36 03/19/19 18:36 03/19/19 18:36 03/19/19 18:36 03/19/19 18:36 Intake & Output 03/18/19 03/19/19 03/20/19 06:59 06:59 06:59 Intake Total 112 1080 Output Total 400 Balance 112 680 Weight 140.6 kg General appearance: PRESENT: no acute distress Eye exam: PRESENT: PERRLA Respiratory exam: PRESENT: clear to auscultation tiffany Cardiovascular exam: PRESENT: +S1, +S2 GI/Abdominal exam: PRESENT: soft Neurological exam: PRESENT: alert Results Laboratory Results: WBC 5.4 10^3/uL (4.0-10.5) 03/19/19 05:25 RBC 5.69 10^6/uL (4.35-5.55) H 03/19/19 05:25 Hgb 13.0 g/dL (13.5-17.0) L 03/19/19 05:25 Hct 40.1 % (37.9-51.0) 03/19/19 05:25 MCV 71 fl (80-97) L 03/19/19 05:25 MCH 22.8 pg (27.0-33.4) L 03/19/19 05:25 MCHC 32.3 g/dL (32.0-36.0) 03/19/19 05:25 RDW 15.7 % (11.5-14.0) H 03/19/19 05:25 Plt Count 154 10^3/uL (150-450) 03/19/19 05:25 Lymph % (Auto) 33.7 % (13-45) 03/19/19 05:25 [place] % (Auto) 10.1 % (3-13) 03/19/19 05:25 Eos % (Auto) 4.3 % (0-6) 03/19/19 05:25 Baso % (Auto) 0.6 % (0-2) 03/19/19 05:25 Absolute Neuts (auto) 2.8 10^3/uL (1.7-8.2) 03/19/19 05:25 Absolute Lymphs (auto) 1.8 10^3/uL (0.5-4.7) 03/19/19 05:25 Absolute Monos (auto) 0.5 10^3/uL (0.1-1.4) 03/19/19 05:25 Absolute Eos (auto) 0.2 10^3/uL (0.0-0.6) 03/19/19 05:25 Absolute Basos (auto) 0.0 10^3/uL (0.0-0.2) 03/19/19 05:25 Seg Neutrophils % 51.3 % (42-78) 03/19/19 05:25 PT 14.8 SEC (11.4-15.4) 03/18/19 23:15 INR 1.15 03/18/19 23:15 APTT 75.3 SEC (23.5-35.8) H 03/19/19 13:45 Sodium 140.6 mmol/L (137-145) 03/19/19 05:25 Potassium 3.4 mmol/L (3.6-5.0) L 03/19/19 05:25 Chloride 109 mmol/L (98-107) H 03/19/19 05:25 Carbon Dioxide 23 mmol/L (22-30) 03/19/19 05:25 Anion Gap 9 (5-19) 03/19/19 05:25 BUN 16 mg/dL (7-20) 03/19/19 05:25 Creatinine 0.80 mg/dL (0.52-1.25) 03/19/19 05:25 Est GFR ( Amer) > 60 (>60) 03/19/19 05:25 Est GFR (MDRD) Non-Af > 60 (>60) 03/19/19 05:25 Glucose 153 mg/dL (75-110) H 03/19/19 05:25 Hemoglobin A1c % 6.7 % (4.7-6.0) H 03/19/19 05:25 Calcium 9.4 mg/dL (8.4-10.2) 03/19/19 05:25 Phosphorus 4.1 mg/dL (2.5-4.5) 03/18/19 20:09 Magnesium 2.6 mg/dL (1.6-2.3) H 03/18/19 20:09 Total Bilirubin 0.5 mg/dL (0.2-1.3) 03/19/19 05:25 Direct Bilirubin 0.3 mg/dL (0.0-0.4) 03/19/19 05:25 Neonat Total Bilirubin Not Reportable 03/19/19 05:25 Neonat Direct Bilirubin Not Reportable 03/19/19 05:25 Neonat Indirect Bili Not Reportable 03/19/19 05:25 AST 38 U/L (17-59) 03/19/19 05:25 ALT 42 U/L (<50) 03/19/19 05:25 Alkaline Phosphatase 69 U/L (38-126) 03/19/19 05:25 Ammonia < 8.7 umol/L (9-33) L 03/18/19 23:15 Creatine Kinase 359 U/L (55-170) H 03/19/19 10:49 CK-MB (CK-2) 2.30 ng/mL (<4.55) 03/19/19 10:49 Troponin I < 0.012 ng/mL 03/19/19 10:49 NT-Pro-B Natriuret Pep 25 pg/mL (<125) 03/18/19 20:09 Total Protein 6.3 g/dL (6.3-8.2) 03/19/19 05:25 Albumin 3.5 g/dL (3.5-5.0) 03/19/19 05:25 Triglycerides 159 mg/dL (<150) H 03/19/19 05:25 Cholesterol 158.32 mg/dL (0-200) 03/19/19 05:25 LDL Cholesterol Direct 92 mg/dL (<100) 03/19/19 05:25 VLDL Cholesterol 31.8 mg/dL (10-31) H 03/19/19 05:25 HDL Cholesterol 47 mg/dL (>40) 03/19/19 05:25 Amylase 86 U/L (30-110) 03/18/19 20:09 Lipase 79.0 U/L (23-300) 03/18/19 20:09 TSH 2.52 uIU/mL (0.47-4.68) 03/18/19 20:09 Free T4 0.84 ng/dL (0.78-2.19) 03/18/19 20:09 Urine Color YELLOW 03/19/19 01:15 Urine Appearance SLIGHTLY-CLOUDY 03/19/19 01:15 Urine pH 5.0 (5.0-9.0) 03/19/19 01:15 Ur Specific [place] 1.024 03/19/19 01:15 Urine Protein NEGATIVE mg/dL (NEGATIVE) 03/19/19 01:15 Urine Glucose (UA) NEGATIVE mg/dL (NEGATIVE) 03/19/19 01:15 Urine Ketones NEGATIVE mg/dL (NEGATIVE) 03/19/19 01:15 Urine Blood NEGATIVE (NEGATIVE) 03/19/19 01:15 Urine Nitrite NEGATIVE (NEGATIVE) 03/19/19 01:15 Urine Bilirubin NEGATIVE (NEGATIVE) 03/19/19 01:15 Urine Urobilinogen NEGATIVE mg/dL (<2.0) 03/19/19 01:15 Ur Leukocyte Esterase NEGATIVE (NEGATIVE) 03/19/19 01:15 Urine WBC (Auto) 0 /HPF 03/19/19 01:15 Urine RBC (Auto) 0 /HPF 03/19/19 01:15 Urine Mucus (Auto) RARE /LPF 03/19/19 01:15 Urine Ascorbic Acid 40 (NEGATIVE) H 03/19/19 01:15 Urine Opiates Screen NEGATIVE 03/19/19 01:15 Urine Methadone Screen NEGATIVE 03/19/19 01:15 Ur Barbiturates Screen NEGATIVE 03/19/19 01:15 Ur Phencyclidine Scrn NEGATIVE 03/19/19 01:15 Ur Amphetamines Screen NEGATIVE 03/19/19 01:15 U Benzodiazepines Scrn NEGATIVE 03/19/19 01:15 Urine Cocaine Screen NEGATIVE 03/19/19 01:15 U Marijuana (THC) Screen NEGATIVE 03/19/19 01:15 03/18/19 03/18/19 03/19/19 20:09 20:09 05:25 CK-MB (CK-2) 3.81 2.54 Troponin I < 0.012 < 0.012 NT-Pro-B Natriuret Pep 25 03/19/19 10:49 CK-MB (CK-2) 2.30 Troponin I < 0.012 NT-Pro-B Natriuret Pep Stroke Is this a Stroke Patient?: No Acute Heart Failure - Is this a Heart Failure Patient?: No
[2019-03-19] MEDS ORDERED: ATORVASTATIN CALCIUM 20 MG TABLET PO SCH (22:00)
== END 2019-03-19 18:51 | disposition home or self-care (01) | DRG 301 ==
LOC: ER 18:20 → EH 22:47 → 3N 23:52
PROVIDERS: ADMIT Internal Medicine; ATTEND Internal Medicine
DX: I82.441 Acute embolism and thrombosis of right tibial vein (principal); E78.5 Hyperlipidemia, unspecified; I10 Essential (primary) hypertension; G47.30 Sleep apnea, unspecified; M19.90 Unspecified osteoarthritis, unspecified site; Z96.652 Presence of left artificial knee joint; Z87.891 Personal history of nicotine dependence
CPT/HCPCS: 36415; 80053; 80061; 80307; 81001; 82140; 82150; 82550; 82553; 83036; 83690; 83735; 83880; 84100; 84439; 84443; 84484; 85025; 85610; 85730; 87040; 87086; 99284; J1644

== ENCOUNTER → 2019-03-18 | Outpatient (CLI) | payer OTHER ==
--- NOTE | 2019-03-18 18:43 | RADIOLOGY REPORT (SQ) ---
EXAM DESCRIPTION: VENOUS UNILATERAL LOWER COMPLETED DATE/TIME: 03/18/2019 6:32 pm REASON FOR STUDY: RLE PAIN/SWELLING R22.41 LOCALIZED SWELLING, MASS AND LUMP, RIGHT LOWER LIMB COMPARISON: None. TECHNIQUE: Dynamic and static kuo scale and color images acquired of the right leg venous system. S elected spectral images acquired with additional compression and augmentation maneuvers. The contrala teral common femoral vein and saphenofemoral junction were also imaged. Images stored on PACS. LIMITATIONS: None. FINDINGS: COMMON FEMORAL: Normal phasicity, compression and augmentation. No visualized echogenic ma terial on uko scale. No defects on color images. FEMORAL: Normal compression and augmentation. No visualized echogenic material on kuo scale. No defe cts on color images. POPLITEAL: Normal compression, augmentation. No visualized echogenic material on kuo scale. No defec ts on color images. CALF VESSELS: Thrombi in the posterior tibial veins, from the knee to the mid calf. GSV and SSV: Normal compression, augmentation. No visualized echogenic material on kuo scale. No def ects on color images. ANY DEEP VENOUS INSUFFICIENCY: Not evaluated. ANY EVIDENCE OF POPLITEAL CYST: No. OTHER: No other significant finding. CONTRALATERAL COMMON FEMORAL VEIN AND SAPHENOFEMORAL JUNCTION: Normal phasicity, compression and augmentation. No visualized echogenic material on kuo scale. No de fects on color images. IMPRESSION: THROMBI IN THE POSTERIOR TIBIAL VEINS, FROM THE KNEE TO THE MID CALF. TECHNICAL DOCUMENTATION: JOB ID: [id number] [employer]- All Rights Reserved Reading location - IP/workstation name: [email or web address]
== END ==
LOC: SP 17:10
PROVIDERS: ATTEND Internal Medicine
DX: I82.431 Acute embolism and thrombosis of right popliteal vein (principal)
CPT/HCPCS: 93971

== ENCOUNTER → 2019-10-03 | Outpatient (CLI) | payer OTHER ==
--- NOTE | 2019-10-03 12:15 | RADIOLOGY REPORT (SQ) ---
EXAM DESCRIPTION: ANKLE RIGHT AP/LATERAL IMAGES COMPLETED DATE/TIME: 10/03/2019 11:29 am REASON FOR STUDY: PAIN IN RIGHT ANKLE AND JOINTS OF RIGHT FOOT M25.571 PAIN IN RIGHT ANKLE AND JOIN TS OF RIGHT FOOT COMPARISON: None. NUMBER OF VIEWS: Two views. TECHNIQUE: AP and lateral radiographic images acquired of the right ankle. LIMITATIONS: None. FINDINGS: MINERALIZATION: Normal. BONES: No acute fracture or dislocation. No worrisome bone lesions. JOINTS: No effusions. SOFT TISSUES: No soft tissue swelling. No foreign body. OTHER: No other significant finding. IMPRESSION: NEGATIVE STUDY OF THE RIGHT ANKLE. NO RADIOGRAPHIC EVIDENCE OF ACUTE INJURY. TECHNICAL DOCUMENTATION: JOB ID: [id number] [employer]- All Rights Reserved Reading location - IP/workstation name: [email or web address]
== END ==
LOC: OD 11:14
PROVIDERS: ATTEND Internal Medicine
DX: M25.571 Pain in right ankle and joints of right foot (principal)